=== PATIENT | female | born 1950 | race Two or more races ===

== ENCOUNTER → 2023-01-11 | Day surgery (SDC) | payer MEDICARE ==
[~2023-01-11] MED LIST: ALENDRONATE SOD70 MG PO; ASPIRIN EC81 MG PO; ATORVASTATIN CA20 MG PO; DIOVAN160 MG PO; FENTANYL CITRATE/PF 100MCG/2 ML INJ ONE; LEVETIRACETAM750 MG PO; LINZESS145 MCG PO; MIDAZOLAM HCL 2 MG/2 ML VIAL ONE; OMEPRAZOLE40 MG PO; OR PHACO EYE KIT ONE; PREOP PHACO EYE KIT ONE; VENTOLIN HFA18 GM INH; VITAMIN D310 MCG PO
[2023-01-11 12:05] VITALS: BP 124/62
== END | disposition home or self-care (01) ==
LOC: OR 08:50
PROVIDERS: ATTEND Ophthalmology
DX: H25.11 Age-related nuclear cataract, right eye (principal); I10 Essential (primary) hypertension; E78.5 Hyperlipidemia, unspecified; K21.9 Gastro-esophageal reflux disease without esophagitis; R56.9 Unspecified convulsions; M19.90 Unspecified osteoarthritis, unspecified site; Z79.82 Long term (current) use of aspirin; Z79.899 Other long term (current) drug therapy; Z86.711 Personal history of pulmonary embolism
CPT/HCPCS: 66984; J2250; J3010; V2788

== ENCOUNTER → 2023-01-25 | Day surgery (SDC) | payer MEDICARE ==
[~2023-01-25] MED LIST changes: +LACTATED RINGER'S 1,000 ML ONE
[2023-01-25 13:45] VITALS: BP 147/72
== END | disposition home or self-care (01) ==
LOC: OR 10:01
PROVIDERS: ATTEND Ophthalmology
DX: H25.12 Age-related nuclear cataract, left eye (principal); Z79.82 Long term (current) use of aspirin; Z79.899 Other long term (current) drug therapy
CPT/HCPCS: 66984; J2250; J3010; J7121; V2788